=== PATIENT | female | born 1965 | race Caucasian/White ===

== ENCOUNTER → 2017-10-01 | Outpatient (CLI) | payer OTHER | END | disposition home or self-care (01) | LOC: RAD 10:24 | DX: M51.36 Other intervertebral disc degeneration, lumbar region (principal) | CPT/HCPCS: 72100 ==

== ENCOUNTER → 2018-03-01 | Outpatient (CLI) | payer SELFPAY ==
--- NOTE | 2018-03-01 14:14 | KCIC ---
MRI Lumbar Spine without contrast History: Lumbar radiculopathy, low back pain for one year, bilateral lower extremity radiculopathy Technique: Multiplanar, multi sequential noncontrast MR imaging was performed of the lumbar spine. Contrast: None Comparison: None Findings: Lumbar vertebral body stature is overall preserved, superior L4 Schmorl's node. There is negligible anterior spondylolisthesis L4-5. Conus terminates at L1. There is hemangioma of the L1 vertebral body. There is mild to moderate degenerative disc disease at L3-4 and to lesser degree at L2-3, minimally at L4-5 and L5-S1. There is apparently some strandy change of the right perinephric fat otherwise difficult to characterize. L1-L2: Spinal canal and neural foramina are adequate. There is mild facet degenerative change and buckling of the ligamentum flavum. L2-L3: There is mild buckling of the ligamentum flavum. There is minimal bulge. Spinal canal and neural foramina are adequate. L3-L4: There is mild facet hypertrophic change and buckling of the ligamentum flavum. There is negligible disc osteophyte complex. Spinal canal is adequate. There is mild narrowing of the left neural foramen, right neural foramen adequate. L4-L5: There is a minimal disc osteophyte complex. There is mild buckling of the ligamentum flavum and [id number] facet degenerative change. There is mild posterior attenuation of the thecal sac centrally by epidural lipomatosis, otherwise spinal canal adequate. There is mild neural foramina compromise bilaterally. L5-S1: There is shallow protrusion more eccentric to the left lateral recess, also minimal disc osteophyte complex in the inferior left neural foramen. There is contact of the descending left S1 nerve root in the left lateral recess with mild left lateral recess stenosis. There is mild inferior narrowing of the left neural foramen, right neural foramen adequate. Impression: 1. There is degenerative disc disease greatest at L3-4. There is mild left lateral recess stenosis L5-S1 with protrusion contacting the descending left S1 nerve root. There is mild neural foramina compromise on the left at L5-S1 and L3-4 and bilaterally at L4-5. 2. There is nonspecific stranding change of the visualized right perinephric fat. Electronically signed by: Ji Garcia MD (03/01/2018 2:11 PM) [id number]
== END | disposition home or self-care (01) ==
LOC: KCIC MRI 11:24
DX: M51.36 Other intervertebral disc degeneration, lumbar region (principal); M51.37 Other intervertebral disc degeneration, lumbosacral region; M48.07 Spinal stenosis, lumbosacral region
CPT/HCPCS: 72148